=== PATIENT | female | born 1985 | race Caucasian/White ===

== ENCOUNTER 2019-09-05 16:19 | Emergency (ER) | payer BC, OTHER ==
[2019-09-05 16:33] VITALS: BMI 29.0
--- NOTE | 2019-09-05 17:00 | PDOC ---
*Physical Exam - Vital Signs Last Vital Signs Temp Pulse Resp BP Pulse Ox 98.2 F 58 L 17 137/80 100 09/05/19 16:26 09/05/19 16:26 09/05/19 16:26 09/05/19 16:26 09/05/19 16:26 Medical Decision Making - Medical Decision Making 09/05/19 16:59 Patient seen by the advanced practice provider under my supervision. Ancillary testing reviewed as necessary. I agree with plan as outlined by the advanced practice provider. Discharge - Discharge Information Problems reviewed: Yes Clinical Impression/Diagnosis: IUD check up Condition: Stable Disposition: HOME - Follow up/Referral - Patient Discharge Instructions Additional Instructions: Thank you for choosing [facility]. It was a pleasure taking care of you. Please follow-up with your OB regarding your IUD in 2 days Return to the Emergency Department if your symptoms worsen or persist, have heavy vaginal bleeding or other concerning symptoms. - Post Discharge Activity
[2019-09-05 17:45] VITALS: TEMP 98
--- NOTE | 2019-09-05 17:57 | PDOC ---
History of Present Illness - General Chief Complaint: Vaginal Bleeding Stated Complaint: VAGINAL PAIN Time Seen by Provider: 09/05/19 16:59 History Source: Patient Exam Limitations: No Limitations Past History - Past Medical History Home Medications: Ambulatory Orders NK [No Known Home Medication] 09/05/19 - Psycho Social/Smoking Cessation Hx Smoking History: Never smoked Have you smoked in the past 12 months: No Information on smoking cessation initiated: No Hx Alcohol Use: No Drug/Substance Use Hx: No *Physical Exam - Vital Signs Last Vital Signs Temp Pulse Resp BP Pulse Ox 98.0 F 63 18 128/76 100 09/05/19 17:44 09/05/19 17:44 09/05/19 17:44 09/05/19 17:44 09/05/19 17:44 - Physical Exam General Appearance: No: Apparent Distress Respiratory/Chest: positive: Lungs Clear, Normal Breath Sounds. negative: Respiratory Distress Cardiovascular: positive: Regular Rhythm, Regular Rate, S1, S2. negative: Murmur Female Pelvic Exam: positive: vaginal bleeding, other (IUD seen in canal but difficult to visualize cervix) Gastrointestinal/Abdominal: positive: Normal Bowel Sounds, Soft. 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 Patient had recent vaginal delivery on August 29 and states an IUD was placed. Patient had delivery done at [facility]. Patient unable to see her OB as office is closed today. Mentions she has gone through 3 pads today. Denies fever, shortness of breath, chest pain, abdominal pain, nausea, vomiting, urinary symptoms. D/W Dr. Laurent - recommends getting pelvic US first 09/05/19 17:49 Pelvic US shows IUD at mid to lower endometrial canal D/W LICENSED VOCATIONAL NURSE, Dr. Fowler, who does not recommend removal of IUD; states if patient is having heavy bleeding, she can be placed on OCP Trisprintec Patient, however, states she does not have heavy bleeding and does not want to take anything for her bleeding 02/22/20 20:05 Discharge - Discharge Information Problems reviewed: Yes Clinical Impression/Diagnosis: IUD check up Condition: Stable Disposition: HOME - Admission No - Additional Discharge Information Prescription Drug Monitoring Program (I-STOP) results: I-STOP not reviewed - Follow up/Referral - Patient Discharge Instructions Additional Instructions: Thank you for choosing [facility]. It was a pleasure taking care of you. Please follow-up with your OB regarding your IUD in 2 days Return to the Emergency Department if your symptoms worsen or persist, have heavy vaginal bleeding or other concerning symptoms. - Post Discharge Activity
[2019-09-05 21:37] VITALS: BP 121/86; PULSE 64
== END 2019-09-05 21:36 | disposition home or self-care (01) ==
LOC: JER 16:19
DX: Z30.431 Encounter for routine checking of intrauterine contraceptive device (principal); E89.0 Postprocedural hypothyroidism
CPT/HCPCS: 76856-TC; 99284-25